=== PATIENT | female | born 1985 | race Caucasian/White ===

== ENCOUNTER 2016-07-28 16:08 | Observation (INO) | payer SELFPAY ==
[~2016-07-28] VITALS: Ht 160 cm; Wt 114.7 kg
[2016-07-28] MEDS ORDERED: SODIUM CHLORIDE FLUSH 10ML SYR IVF ONE (17:00)
[2016-07-28] MEDS ORDERED: ONDANSETRON 2MG/ML, 2ML IVPush ONE (17:00)
[2016-07-28] MEDS ORDERED: SODIUM CHLORIDE 0.9% 1,000ML IVBOLUS ONE (17:00)
[2016-07-28] MEDS ORDERED: MORPHINE SULFATE 4 MG/ML, 1ML IVPush PRN (17:00)
[2016-07-28 17:06] LABS: PATH.CAST-FLAG NOT PRESENT; SPERM-FLAG NOT PRESENT; SRC-FLAG NOT PRESENT; XTAL-FLAG NOT PRESENT; YLC-FLAG NOT PRESENT
[2016-07-28] MEDS ORDERED: MORPHINE SULFATE 4 MG/ML, 1ML ONE (17:13)
[2016-07-28] MEDS ORDERED: ONDANSETRON 2MG/ML, 2ML ONE ×2 (17:13→21:38)
[2016-07-28 17:46] LABS: ASPARTATE AMINO TRANSFERASE 14 U/L (15-37); BLOOD UREA NITROGEN 9 mg/dL (7-18)
[2016-07-28] MEDS ORDERED: SODIUM CHLORIDE 0.9% 1,000 ML IV ONE (18:24)
[2016-07-28] MEDS ORDERED: METRONIDAZOLE PMX 500MG/100ML 100 ML IVPB ONE (18:30)
[2016-07-28] MEDS ORDERED: CEFTRIAXONE 1,000 MG in SODIUM CHLORIDE 0.9% 50 ML IVPB ONE (18:30)
[2016-07-28] MEDS: D5%-0.45% NACL 1,000 ML IV ONE (18:47)
[2016-07-28] MEDS ORDERED: CEFTRIAXONE PMX 1GM/50ML 50 ML ONE (18:51)
[2016-07-28] MEDS ORDERED: HYDROmorphone 1 MG/ML, 1ML IVPush PRN (19:00)
[2016-07-28] MEDS ORDERED: ONDANSETRON 2MG/ML, 2ML IVPush PRN (19:00)
[2016-07-28] MEDS ORDERED: SODIUM CHLORIDE FLUSH 10ML SYR IVF PRN (19:00)
[2016-07-28] MEDS ORDERED: BUPIVACAINE/PF-EPI 0.5% 1:200K ONE (20:02)
[2016-07-28 20:32] VITALS: BP 105/66
[2016-07-28] MEDS ORDERED: MIDAZOLAM 1 MG/ML, 2ML ONE (21:04)
[2016-07-28] MEDS ORDERED: FENTANYL PF 250 MCG/5ML ONE (21:04)
[2016-07-28] MEDS ORDERED: PROPOFOL 10 MG/ML, 20ML ONE (21:38)
[2016-07-28] MEDS ORDERED: GLYCOPYRROLATE 0.2MG/1ML ONE ×3 (21:38→23:15)
[2016-07-28] MEDS ORDERED: NEOSTIGMINE 1 MG/ML, 10ML ONE (21:38)
[2016-07-28] MEDS ORDERED: ROCURONIUM 10 MG/ML ONE (21:38)
[2016-07-28] MEDS ORDERED: SUCCINYLCHOLINE 20 MG/ML, 10ML ONE (21:38)
[2016-07-28] MEDS ORDERED: DEXAMETHASONE 4 MG/ML, 1ML ONE (21:38)
[2016-07-28] MEDS ORDERED: BUPIVACAINE/PF-EPI 0.5% 1:200K INFIL ONE (21:59)
[2016-07-28] MEDS ORDERED: HYDROmorphone 2 MG/ML, 1ML ONE (22:32)
[2016-07-28] MEDS ORDERED: FENTANYL PF 100 MCG/2ML ONE (22:32)
[2016-07-28] MEDS: HYDROmorphone 1 MG/ML, 1ML IV PRN ×3 (22:35→23:00)
[2016-07-28] MEDS ORDERED: OXYcodone 5 MG/5 ML ORAL.SOL UDC PO PRN (23:00)
[2016-07-28] MEDS ORDERED: KETOROLAC 30 MG/1 ML IV PRN (23:00)
[2016-07-28] MEDS ORDERED: FENTANYL PF 100 MCG/2ML IV PRN (23:00)
[2016-07-28] MEDS ORDERED: ACETAMINOPHEN 325 MG TABLET PO PRN (23:00)
[2016-07-28] MEDS ORDERED: MEPERIDINE/PF 25MG/0.5ML IVPush PRN (23:00)
[2016-07-28] MEDS ORDERED: PROMETHAZINE 25 MG/ML, 1ML IV PRN (23:00)
[2016-07-28] MEDS ORDERED: GLYCOPYRROLATE 0.2MG/1ML IVPush ONE (23:30)
[2016-07-29] MEDS ORDERED: morphine SULFATE 10 MG/ML, 1ML IV PRN (00:30)
[2016-07-29] MEDS ORDERED: PROMETHAZINE 25 MG/ML, 1ML IM PRN (00:30)
[2016-07-29] MEDS ORDERED: LACTATED RINGERS 1,000 ML IV SCH (00:30)
[2016-07-29 00:32] VITALS: BP 121/84
[2016-07-29] MEDS: OXYcodone IR 5MG TABLET PO PRN ×3 (00:49→11:21)
[2016-07-29] MEDS: D5%-0.45% NACL 1,000 ML IV ONE (02:52)
[2016-07-29 03:14] VITALS: BP 112/78
[2016-07-29] MEDS ORDERED: PNEUMOCOCCAL 23 VACCINE IM-VACC ONE (06:30)
[2016-07-29 08:22] VITALS: BP 109/70
[2016-07-29] MEDS ORDERED: OXYC5TAB3 PO (09:35)
[2016-07-29] MEDS ORDERED: PROM12.55 PO (09:37)
[2016-07-29 11:47] VITALS: BP 110/74
== END 2016-07-29 11:40 | disposition home or self-care (01) ==
LOC: ED 18:18 → INTOOBSV 18:47 → EDIP 18:47 → 4NOR 20:30
PROVIDERS: ADMIT Surgery; ATTEND Surgery
DX: K80.12 Calculus of gallbladder with acute and chronic cholecystitis without obstruction (principal); Z87.442 Personal history of urinary calculi; Z87.891 Personal history of nicotine dependence; Z23 Encounter for immunization
CPT/HCPCS: 36415; 47562; 76700; 80053; 81001; 83690; 84703; 85025; 87086; 88304; 90732; 96365; 96366; 96375; 99285; G0378; J0330; J0696; J1100; J1170; J2250; J2405; J2704; J2710; J3010; J7030; J7120; 90471; J3490

== ENCOUNTER 2016-08-05 22:43 | Emergency (ER) | payer SELFPAY ==
[~2016-08-05] VITALS: Ht 162.6 cm; Wt 107.5 kg
[~2016-08-05 22:43] MED LIST: OXYC5TAB3 PO; PROM12.55 PO
[2016-08-05 22:44] VITALS: BP 149/97
[2016-08-06 01:00] LABS: ASPARTATE AMINO TRANSFERASE 22 U/L (15-37); BLOOD UREA NITROGEN 13 mg/dL (7-18)
[2016-08-06] MEDS ORDERED: MORPHINE SULFATE 4 MG/ML, 1ML ONE (01:01)
[2016-08-06] MEDS ORDERED: KETOROLAC 30 MG/1 ML ONE (01:47)
[2016-08-06] MEDS ORDERED: LORazepam 2 MG/ML, 1ML ONE (01:47)
== END 2016-08-06 04:54 | disposition home or self-care (01) ==
LOC: ED 23:59
DX: R10.11 Right upper quadrant pain (principal); D72.829 Elevated white blood cell count, unspecified
CPT/HCPCS: 36415; 76700; 80053; 83690; 85025; 93005; 99285

== ENCOUNTER 2016-11-06 12:03 | Emergency (ER) | payer MEDICAID ==
[~2016-11-06] VITALS: Ht 160 cm; Wt 96.4 kg
[2016-11-06 12:07] VITALS: BP 121/83
[2016-11-06] MEDS ORDERED: KETOROLAC 30 MG/1 ML ONE (12:54)
[2016-11-06] MEDS ORDERED: KETOROLAC 30 MG/1 ML IM ONE (13:00)
== END 2016-11-06 14:43 | disposition home or self-care (01) ==
LOC: ED 13:06
DX: M25.571 Pain in right ankle and joints of right foot (principal); L25.3 Unspecified contact dermatitis due to other chemical products
CPT/HCPCS: 73610; 96372; 99284; J1885

== ENCOUNTER 2019-08-27 23:03 | Emergency (ER) | payer MEDICAID ==
[~2019-08-27] VITALS: Ht 160 cm; Wt 110.0 kg
[~2019-08-27 23:03] MED LIST changes: -PROM12.55 PO; +PROM12.57 PO
[2019-08-28 00:09] VITALS: BP 129/81
== END 2019-08-28 00:23 | disposition home or self-care (01) ==
LOC: ED 23:30
DX: S83.411A Sprain of medial collateral ligament of right knee, initial encounter (principal); S83.421A Sprain of lateral collateral ligament of right knee, initial encounter; F17.210 Nicotine dependence, cigarettes, uncomplicated; X50.0XXA Overexertion from strenuous movement or load, initial encounter; Y92.219 Unspecified school as the place of occurrence of the external cause; Y93.89 Activity, other specified; Y99.8 Other external cause status
CPT/HCPCS: 29505; 99283